=== PATIENT | male | born 1980 ===

== ENCOUNTER 2017-07-28 19:13 | Emergency (ER) | payer SELFPAY ==
[2017-07-28] MEDS ORDERED: Tetracaine 0.5% OPTH.SOL 4 ML* 1 DROP BTL BOTH EYES ONE (19:19)
[2017-07-28] MEDS ORDERED: Ibuprofen TAB* 400 MG PO ONE (19:28)
--- NOTE | 2017-07-28 19:29 | ED ---
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 They flushed it at work, and then they flushed it again. They present now due to increased pain and clear drainage from the eye. The right eye is unaffected. Pt took 400mg ibuprofen approx 1 hr prior to presenting to . [facility] spoke with people at the farm and they sent a picture of the name of the chemical and it is sodium hypochlorite 15. - History of Current Complaint Chief Complaint: UCEye Hx Obtained From: Patient, Family/Systems Testing Laboratory Technician - male from workplace who interprets Syriac Onset/Duration: Sudden Onset, Lasting Hours Severity: Severe Associated Signs And Symptoms: Positive: Negative Cough: None - Allergies/Home Medications Allergies/Adverse Reactions: Allergies Allergy/AdvReac Type Severity Reaction Status Date / Time No Known Allergies Allergy Verified 07/28/17 19:18 Home Medications: Home Medications NK [No Home Medications Reported] 07/28/17 [History Confirmed 07/28/17] PMH/Surg Hx/FS Hx/Imm Hx Previously Healthy: Yes - Surgical History Surgery Procedure, Year, and Place: none Infectious Disease History: No - Family History Known Family History: Positive: Hypertension - Social History Occupation: Employed Full-time Alcohol Use: None Substance Use Type: Reports: None Smoking Status (MU): Never Smoked Tobacco Review of Systems Constitutional: Negative Positive: Drainage - clear, Other - eyelid swelling Cardiovascular: Negative Respiratory: Negative Musculoskeletal: Negative Skin: Negative Neurological: Negative Psychological: Normal All Other Systems Reviewed And Are Negative: Yes Physical Exam Triage Information Reviewed: Yes Vital Signs Reviewed: Yes Appearance: Positive: Well-Appearing, Well-Nourished, Pain Distress Skin: Positive: Warm, Skin Color Reflects Adequate Perfusion, Other - swelling left eyelids Eyes: Positive: EOMI, RODNEY, Conjunctiva Inflammed, Discharge - clear ENT: Positive: Normal ENT inspection Neck: Positive: Supple, Nontender Respiratory/Lung Sounds: Positive: Clear to Auscultation Cardiovascular: Positive: RRR, Pulses are Symmetrical in both Upper and Lower Extremities Musculoskeletal: Positive: Strength/ROM Intact Neurological: Positive: Alert, Oriented to Person Place, Time, Normal Gait, Facial Symmetry, Speech Normal Psychiatric: Positive: Normal AVPU Assessment: Alert - [place] Coma Scale Best Eye Response: 4 - Spontaneous Best Motor Response: 6 - Obeys Commands Best Verbal Response: 5 - Oriented Coma Scale Total: 15 Re-Evaluation - Re-Evaluation First Eval Re-Evaluation Time: 19:45 - initial liter of saline in. Pt tolerating well. Additional ordered. Winter WOLF spoke with poison control Change: Improved Second Eval Re-Evaluation Time: 20:00 - Poison Control calls back and states after reviewing MDS specs on the sodium hypochlorite 15 that pt needs a mandatory ophthalmology consult. wind farm designer contacted thru [employer] respite provider service, #[id number]. Explained to pt who voices understanding. Change: Unchanged Third Eval Re-Evaluation Time: 20:35 - pH appears to have decreased a bit, approximately 7.5. Right eye is pH 7 still. Visual acuity done, 20/30 in right eye, 20/50 in left eye. Change: Improved EENT Course/Dx - Course Course Of Treatment: initial pH = 8 in left eye, a bit later pH in right eye is 7. (Controls were done on pH paper prior.). Tetracaine 2 drops left eye applied , then Nehemiah lens. Total of 3 liters NS given via Nehemiah lens to left eye. Pt tolerated well. pH left eye after irrigation approx 7.5, (less dark blue), and pH in right eye remains 7. VA 20/30 right, 20/50 left after irrigation. wind farm designer [id number] and [employer] used to interpret. Pt understands need to go to [facility] directly for urgent ophthalmology consult tonight, where Dr. Singleton is design consultant, confirmed with Dr. Ch, ED attending. Fluorescein stain was not done of either eye. Pt is ambulatory at [facility] with [facility]. - Differential Diagnoses Differential Diagnoses: Abrasion, Other - chemical burn, chemical conjunctivitis - Diagnoses Provider Diagnoses: Chemical burn due to alkali, conjunctiva, left - Provider Notifications Instructed by Provider To: MD Will See In ED - discussed with Dr. Ch, ED attending at [facility]. Staff at [facility] and Dr. Ch confirm that Dr. Singleton is design consultant for [facility] tonight. I advised Dr. Ch that poison control recommended that pt needs an ophthalmology consult tonight because the chemical is caustic. I also advised him of pH and irrigation. Discharge - Sign-Out/Discharge Documenting (check all that apply): Discharge - Discharge Plan Condition: Stable Disposition: HOME Patient Education Materials: [facility] (ED) Print Language: GUYANESE Referrals: [facility] [facility] [Outside] - 1 Day No Primary Care Phys,NOPCP [Primary Care Provider] - Additional Instructions: Dr. Duke spoke with poison control and based on the MDS sheets for the sodium hypochlorite 15 and they recommend that he go directly to an emergency department that has an senior civil engineer, so that he may have an ophthalmology consult tonight. Dr. Singleton is design consultant at the [facility] emergency department , and we spoke with the ED attending, Dr. Ch, who will be expecting you. The initial pH in your left eye was 8, and in the right eye was 7. You were given 3 liters total of normal saline through a Nehemiah lens. You received 2 drops of tetracaine in the left eye prior to the Nehemiah lens. You were given ibuprofen 400mg orally at 8:15pm. Your visual acuity was 20/30 in the right eye, 20/50 in the left eye. Your pH after the irrigation was approx 7.5 in the left eye (definitely not as dark green), and pH remained 7 in the right eye. GO DIRECTLY TO THE [facility] NOW. - Billing Disposition and Condition Condition: STABLE Disposition: HOME
[2017-07-28 19:33] VITALS: BP 147/89
[2017-07-28] MEDS ORDERED: Fluorescein Sod TOPICAL 0.6* 0.6 MG TEST OPHTHALMIC ONE (19:43)
== END 2017-07-28 20:40 | disposition home or self-care (01) ==
LOC: UCCORT 19:13
DX: T54.3X1A Toxic effect of corrosive alkalis and alkali-like substances, accidental (unintentional), initial encounter (principal); T26.62XA Corrosion of cornea and conjunctival sac, left eye, initial encounter; Y93.H3 Activity, building and construction; Y92.9 Unspecified place or not applicable; Y99.0 Civilian activity done for income or pay
CPT/HCPCS: 99203; A9270-GY; G0463